=== PATIENT | female | born 1995 ===

== ENCOUNTER 2020-11-07 16:55 | Inpatient (IN) | payer BC ==
[2020-11-07] MEDS: Lactated Ringers 1,000 ML IV SCH (17:15)
[2020-11-07] MEDS ORDERED: Methylergonovine 0.2 MG/1 ML Amp IM PRN (17:23)
[2020-11-07] MEDS ORDERED: Lidocaine 1% 50 ML MDV INJECT PRN (17:23)
[2020-11-07] MEDS ORDERED: Misoprostol 200 MCG Tab PO PRN (17:23)
[2020-11-07] MEDS ORDERED: Tranexamic Acid 1,000 MG in Sodium Chloride 0.9% 100 ML IV PRN (17:23)
[2020-11-07] MEDS ORDERED: Butorphanol 1 MG/ML SDV IVPUSH PRN (17:23)
[2020-11-07] MEDS ORDERED: Sodium Chloride 0.9% 2.5 ML Syringe FLUSH PRN (17:23)
[2020-11-07] MEDS ORDERED: Sodium Chloride 0.9% 10 ML Syringe FLUSH PRN (17:23)
[2020-11-07] MEDS ORDERED: Carboprost Tromethamine 250 MCG/1 ML Amp IM PRN (17:23)
[2020-11-07] MEDS ORDERED: Nalbuphine 10 MG/1 ML Vial IVPUSH PRN (17:23)
[2020-11-07] MEDS ORDERED: Water For Irrigation,Sterile 1,000 ML Container IRR PRN (17:23)
[2020-11-07] MEDS ORDERED: Sodium Chloride 0.9% 10 ML SDV IV PRN (17:23)
[2020-11-07] MEDS ORDERED: Terbutaline 1 MG/ML SDV SUBCUT PRN (17:23)
[2020-11-07] MEDS ORDERED: Oxytocin/0.9 % Sodium Chloride 30 UNIT/500 ML BAG IV SCH ×2 (17:30)
[2020-11-07] MEDS ORDERED: Misoprostol 25 MCG (1/4 of 100 MCG) Tab PO ONE (18:00)
[2020-11-07] MEDS ORDERED: Misoprostol 25 MCG (1/4 of 100 MCG) Tab VAG PRN (18:00)
[2020-11-08] MEDS ORDERED: fentaNYL 100 MCG/2 ML SDV ONE (10:55)
[2020-11-08] MEDS ORDERED: Bupivicaine/fentaNYL/NS 250 ML ONE (10:56)
[2020-11-08] MEDS: Lactated Ringers 1,000 ML IV SCH ×3 (10:58→17:54)
[2020-11-08] MEDS ORDERED: ePHEDrine 50 MG/ML SDV ONE (11:05)
--- NOTE | 2020-11-08 11:31 | PCM.PREANE ---
Preanesthetic Assessment - Anesthesia/Transfusion/Family Hx Anesthesia History: Prior Anesthesia Reaction Type of Anesthesia Reaction: Excessive Nausea/Vomiting Family History of Anesthesia Reaction: No Transfusion History: No Prior Transfusion(s) Intubation History: Unknown - Review of Systems General: No Symptoms Pulmonary: No Symptoms Cardiovascular: No Symptoms Gastrointestinal: Abdominal Pain (labor pain) Neurological: No Symptoms Other: Reports: None - Physical Assessment Height: 5 ft 2 in Weight: 64.41 kg ASA Class: 2 Mental Status: Alert & Oriented x3 Airway Class: Mallampati = 1 Dentition: Reports: Normal Dentition Thyro-Mental Finger Breadths: 3 Mouth Opening Finger Breadths: 2 ROM/Head Extension: Full Lungs: Clear to Auscultation, Normal Respiratory Effort Cardiovascular: Regular Rate, Regular Rhythm - Lab Values: Laboratory Last Values WBC 12.29 K/uL (4.0-11.0) H 11/07/20 17:15 RBC 4.35 M/uL (4.30-5.90) 11/07/20 17:15 Hgb 12.2 g/dL (12.0-16.0) 11/07/20 17:15 Hct 38.0 % (36.0-46.0) 11/07/20 17:15 MCV 87.4 fL (80.0-98.0) 11/07/20 17:15 MCH 28.0 pg (27.0-32.0) 11/07/20 17:15 MCHC 32.1 g/dL (31.0-37.0) 11/07/20 17:15 RDW Std Deviation 42.8 fl (28.0-62.0) 11/07/20 17:15 RDW Coeff of Shaina 13 % (11.0-15.0) 11/07/20 17:15 Plt Count 256 K/uL (150-400) 11/07/20 17:15 MPV 11.40 fL (7.40-12.00) 11/07/20 17:15 Nucleated RBC % 0.0 /100WBC 11/07/20 17:15 Nucleated RBCs # 0 K/uL 11/07/20 17:15 SARS-CoV-2 RNA (MAGI) NEGATIVE (NEGATIVE) 11/07/20 17:15 Blood Type O POSITIVE 11/07/20 17:15 Antibody Screen NEGATIVE 11/07/20 17:15 - Allergies Allergies/Adverse Reactions: Allergies Allergy/AdvReac Type Severity Reaction Status Date / Time acetaminophen [From Vicodin] Allergy Vomiting Verified 11/07/20 17:22 hydrocodone [From Vicodin] Allergy Vomiting Verified 11/07/20 17:22 anesthesia Allergy Vomiting Uncoded 11/07/20 17:22 - Blood Blood Available: No - Anesthesia Plan Pre-Op Medication Ordered: None - Acknowledgements Anesthesia Type Planned: Epidural Pt an Appropriate Candidate for the Planned Anesthesia: Yes Alternatives and Risks of Anesthesia Discussed w Pt/Guardian: Yes Pt/Guardian Understands and Agrees with Anesthesia Plan: Yes PreAnesthesia Questionnaire Cardiovascular History: Reports: Other (See Below) Other Cardiovascular History: 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: Musculoskeletal History: Reports: Other (See Below) Other Musculoskeletal History: 2 bulging and ruptured lumbar discs - Past Surgical History HEENT Surgical History: Reports: Tonsillectomy - SUBSTANCE USE Tobacco Use Status *Q: Never Tobacco User Second Hand Smoke Exposure: No Recreational Drug Use History: No - CURRENT (IN HOUSE) MEDS Current Meds: Current Medications Butorphanol Tartrate (Stadol) 1 mg IVPUSH Q1H PRN PRN Reason: Pain Carboprost Tromethamine (Hemabate Ds) 250 mcg IM ASDIRECTED PRN PRN Reason: Post Hemorrhage Oxytocin/Sodium Chloride (Oxytocin 30 Unit/500 Ml-Ns) 30 unit in 500 mls @ 500 mls/hr IV TITRATE JCARLOS Tranexamic Acid 1,000 mg/ (Sodium Chloride) 110 mls @ 660 mls/hr IV ONETIME PRN PRN Reason: Bleeding Oxytocin/Sodium Chloride (Oxytocin 30 Unit/500 Ml-Ns) 30 unit in 500 mls @ 2 mls/hr IV TITRATE JCARLOS; Protocol Last Admin: 11/08/20 09:44 Dose: 2 munits/min, 2 mls/hr Documented by: Lactated Ringer's (Ringers, Lactated) 1,000 mls @ 150 mls/hr IV ASDIRECTED JCARLOS Last Admin: 11/08/20 10:58 Dose: 900 mls/hr Documented by: Lidocaine HCl (Xylocaine 1%) 50 ml INJECT ONETIME PRN PRN Reason: Laceration repair Methylergonovine Maleate (Methergine) 0.2 mg IM ASDIRECTED PRN PRN Reason: Post Hemorrhage Misoprostol (Cytotec) 200 mcg PO ONETIME PRN PRN Reason: Post Hemorrhage Misoprostol (Cytotec) 25 mcg VAG Q4H PRN PRN Reason: Cervical Ripening Last Admin: 11/07/20 22:42 Dose: 25 mcg Documented by: Nalbuphine HCl (Nubain) 10 mg IVPUSH Q1H PRN PRN Reason: Pain (severe 7-10) Sodium Chloride (Saline Flush) 10 ml FLUSH ASDIRECTED PRN PRN Reason: Keep Vein Open Sodium Chloride (Saline Flush) 2.5 ml FLUSH ASDIRECTED PRN PRN Reason: Keep Vein Open Sodium Chloride (Normal Saline) 10 ml IV ASDIRECTED PRN PRN Reason: IV Use Sterile Water (Sterile Water For Irrigation) 1,000 ml IRR ASDIRECTED PRN PRN Reason: delivery Terbutaline Sulfate (Brethine) 0.25 mg SUBCUT ASDIRECTED PRN PRN Reason: Tacysystole Discontinued Medications Ephedrine Sulfate (Ephedrine Sulfate) Confirm Administered Dose 50 mg .ROUTE .STK-MED ONE Stop: 11/08/20 11:06 Fentanyl (Sublimaze) Confirm Administered Dose 100 mcg .ROUTE .STK-MED ONE Stop: 11/08/20 10:56 Fentanyl/Bupivacaine HCl (Fentanyl/Bupivacaine/Ns 2 Mcg-0.125% 250 Ml) Confirm Administered Dose 250 mls @ as directed .ROUTE .STK-MED ONE Stop: 11/08/20 10:57 Misoprostol (Cytotec) 25 mcg PO ONETIME ONE Stop: 11/07/20 18:01 Last Admin: 11/07/20 18:08 Dose: 25 mcg Documented by:
[2020-11-08] MEDS ORDERED: Measles, Mumps & Rubella Vaccine 0.5 ML SDV SUBCUT ONE (18:58)
[2020-11-08] MEDS ORDERED: Bisacodyl 10 MG Supp RECTAL PRN (18:58)
[2020-11-08] MEDS ORDERED: Acetaminophen 500 MG Tab PO PRN ×2 (18:58)
[2020-11-08] MEDS ORDERED: Ibuprofen 400 MG Tab PO PRN (18:58)
[2020-11-08] MEDS ORDERED: Lanolin 100% Cream 7 GM Tube TOP PRN (18:58)
[2020-11-08] MEDS ORDERED: oxyCODONE 5 MG Tab PO PRN (18:58)
--- NOTE | 2020-11-08 19:03 | PCM.DEL ---
L & D Note - General Info Date of Service: 11/08/20 - Delivery Note Labor: Spontaneous, Induced by ARM, Induced by Oxytocin Delivery Outcome: Livebirth Presentation: Right Occiput Anterior (GABBY) Nuchal Cord: None Anesthesia Type: Epidural Anesthetic: Lidocaine (Xylocaine) 0.5% Plain Local Anesthetic Volume: Other (13cc) Amniotic Fluid Description: Clear Episiotomy Type: Right Mediolateral Laceration: 2nd Degree Suture type: Vicryl Suture size: 3-0 Placenta: Intact, Spontaneous Cord: 3 Vessels Estimated Blood Loss: 300 Resuscitation Needed: No [place]: Suctioned Provider: Ro Saini Second Stage Interventions: Reports: Pushing Effectively - General Info Date of Service: 11/08/20 - Patient Data Weight - Most Recent: 142 lb Lab Results Last 24 Hours: Laboratory Results - last 24 hr 11/07/20 Range/Units 17:15 Blood Type O POSITIVE Antibody Screen NEGATIVE Med Orders - Current: Current Medications Butorphanol Tartrate (Stadol) 1 mg IVPUSH Q1H PRN PRN Reason: Pain Carboprost Tromethamine (Hemabate Ds) 250 mcg IM ASDIRECTED PRN PRN Reason: Post Hemorrhage Oxytocin/Sodium Chloride (Oxytocin 30 Unit/500 Ml-Ns) 30 unit in 500 mls @ 500 mls/hr IV TITRATE JCARLOS Tranexamic Acid 1,000 mg/ (Sodium Chloride) 110 mls @ 660 mls/hr IV ONETIME PRN PRN Reason: Bleeding Oxytocin/Sodium Chloride (Oxytocin 30 Unit/500 Ml-Ns) 30 unit in 500 mls @ 2 mls/hr IV TITRATE JCARLOS; Protocol Last Titration: 11/08/20 12:38 Dose: 4 munits/min, 4 mls/hr Documented by: Lactated Ringer's (Ringers, Lactated) 1,000 mls @ 150 mls/hr IV ASDIRECTED JCARLOS Last Admin: 11/08/20 17:54 Dose: 150 mls/hr Documented by: Lidocaine HCl (Xylocaine 1%) 50 ml INJECT ONETIME PRN PRN Reason: Laceration repair Last Admin: 11/08/20 18:12 Dose: 50 ml Documented by: Methylergonovine Maleate (Methergine) 0.2 mg IM ASDIRECTED PRN PRN Reason: Post Hemorrhage Misoprostol (Cytotec) 200 mcg PO ONETIME PRN PRN Reason: Post Hemorrhage Misoprostol (Cytotec) 25 mcg VAG Q4H PRN PRN Reason: Cervical Ripening Last Admin: 11/07/20 22:42 Dose: 25 mcg Documented by: Nalbuphine HCl (Nubain) 10 mg IVPUSH Q1H PRN PRN Reason: Pain (severe 7-10) Sodium Chloride (Saline Flush) 10 ml FLUSH ASDIRECTED PRN PRN Reason: Keep Vein Open Sodium Chloride (Saline Flush) 2.5 ml FLUSH ASDIRECTED PRN PRN Reason: Keep Vein Open Sodium Chloride (Normal Saline) 10 ml IV ASDIRECTED PRN PRN Reason: IV Use Sterile Water (Sterile Water For Irrigation) 1,000 ml IRR ASDIRECTED PRN PRN Reason: delivery Terbutaline Sulfate (Brethine) 0.25 mg SUBCUT ASDIRECTED PRN PRN Reason: Tacysystole Discontinued Medications Ephedrine Sulfate (Ephedrine Sulfate) Confirm Administered Dose 50 mg .ROUTE .STK-MED ONE Stop: 11/08/20 11:06 Fentanyl (Sublimaze) Confirm Administered Dose 100 mcg .ROUTE .STK-MED ONE Stop: 11/08/20 10:56 Fentanyl/Bupivacaine HCl (Fentanyl/Bupivacaine/Ns 2 Mcg-0.125% 250 Ml) Confirm Administered Dose 250 mls @ as directed .ROUTE .STK-MED ONE Stop: 11/08/20 10:57 Misoprostol (Cytotec) 25 mcg PO ONETIME ONE Stop: 11/07/20 18:01 Last Admin: 11/07/20 18:08 Dose: 25 mcg Documented by: - Problem List Review Problem List Initiated/Reviewed/Updated: Yes - My Orders Last 24 Hours: My Active Orders 11/08/20 Breakfast Regular Diet [DIET] 11/08/20 18:58 Patient Status [ADT] Routine May Shower [RC] ASDIRECTED Up ad Cheryl [RC] ASDIRECTED Vital Signs [RC] PER UNIT ROUTINE Acetaminophen [Tylenol Extra Strength] 1,000 mg PO Q4H PRN Acetaminophen [Tylenol Extra Strength] 500 mg PO Q4H PRN Benzocaine/Menthol [Dermoplast Pain Relief 20%-0.5% [place]] 78 gm TOP ASDIRECTED PRN Docusate Sodium [Colace] 100 mg PO BID PRN Ibuprofen [Motrin] 400 mg PO Q4H PRN Ibuprofen [Motrin] 800 mg PO Q6H PRN Lanolin [Lansinoh HPA] See Dose Instructions TOP ASDIRECTED PRN Measles, Mumps & Rubella [M-M-R II Vaccine] 0.5 ml SUBCUT .ONCE ONE bisacodyL [Dulcolax] 10 mg RECTAL ONETIME PRN oxyCODONE 5 mg PO Q2H PRN witch Zena [Tucks] 1 pad TOP ASDIRECTED PRN Assess Lochia [WOMSER] Per Unit Routine Assess Uterine Involution [WOMSER] Per Unit Routine Breast Pump [WOMSER] Per Unit Routine Peripheral IV Discontinue [OM.PC] Routine 11/08/20 18:59 Cooling Warming Measures [RC] ASDIRECTED Ice Therapy [OM.PC] Per Unit Routine Perineal Care [OM.PC] Per Unit Routine 11/09/20 05:11 HEMOGLOBIN/HEMATOCRIT,HH [HEME] Timed - Assessment Assessment:: 25yo PPD0 s/p elective IOL and . - Plan Plan:: Routine care.
--- NOTE | 2020-11-08 20:28 | OR ---
SURGEON: Joce Newman MD DATE OF PROCEDURE: 11/08/2020 INDICATION FOR PROCEDURE: A 25-year-old, G1, P0, at 39 weeks and 3 days, presenting for induction of labor. The patient desired elective induction due to living remotely from the hospital. was complicated by a herniated disk and lower back pain. She had a consult with Anesthesia and was cleared for epidural. She received Cytotec for induction of labor and began peggy regularly after three doses and was 3cm dilated. She received an epidural with good pain control. She became hypotensive after the epidural with a sensation of tingling in her arms and face, and she was given ephederin, which she improved after. She had AROM with clear fluid and Pitocin was started. She continued to make cervical change and became fully dilated with desire to push. The tracing was mostly category 1 with intermittent variable decelerations with contractions. She is GBS negative. PREOPERATIVE DIAGNOSIS: Turner intrauterine at 39 weeks and 3 days. POSTOPERATIVE DIAGNOSIS: Turner intrauterine at 39 weeks and 3 days. PROCEDURE PERFORMED: Normal spontaneous vaginal delivery, repair of right mediolateral episiotomy. ANESTHESIOLOGIST: Dr. Desean Sullivan. ANESTHESIA: Epidural. FINDINGS: Viable female . score of 7 and 9. weight of 6 pounds 8 ounces. Placenta appears to have a marginal cord insertion. ESTIMATED BLOOD LOSS: 300 mL. DESCRIPTION OF PROCEDURE: The patient pushed with contractions for approximately 2 hours with good descent. The head was ; however, the patient was having difficulty delivering due to narrow vaginal introitus. Therefore, a right mediolateral episiotomy was performed, and the patient delivered with the next contraction. head in occiput anterior position, restituted ROT. Anterior shoulder delivered easily. No nuchal cord was noted. The posterior shoulder and the remaining body delivered easily. The baby was placed on maternal chest and evaluated by awaiting nursery staff. The baby was pink, crying, and moving all extremities after delivery. The umbilical cord was clamped and cut after 60 seconds and no longer pulsating. The cord gases were obtained. The placenta was removed with gentle traction on the umbilical cord. It was examined to be intact with 3- vessel cord. There appeared to be a marginal cord insertion. The perineum was examined, and she had a second-degree laceration at the site of the episiotomy. 13 mL of 1% lidocaine with epi was injected for local anesthesia. The laceration was repaired in usual fashion using 3-0 Vicryl. Fundal massage was performed. The uterus was firm and at the umbilicus and the bleeding was light. The patient tolerated the procedure well and was given care instructions. STEVIE VILLELA /[id number] CLIFF
[2020-11-08] MEDS: Benzocaine/Menthol 20%-0.5% Spray 78 GM Cannister TOP PRN (21:39)
[2020-11-08] MEDS: Witch Hazel Medicated Pads 40/Jar TOP PRN (21:39)
[2020-11-09] MEDS: Ibuprofen 800 MG Tab PO PRN ×2 (05:28→19:27)
--- NOTE | 2020-11-09 07:55 | PCM48HPAN ---
Post Anesthesia Note - EVALUATION WITHIN 48HRS OF ANESTHETIC Vital Signs in Normal Range: Yes Patient Participated in Evaluation: Yes Respiratory Function Stable: Yes Airway Patent: Yes Cardiovascular Function Stable: Yes Hydration Status Stable: Yes Pain Control Satisfactory: Yes Nausea and Vomiting Control Satisfactory: Yes Mental Status Recovered: Yes Vital Signs: Last Vital Signs Temp 36.6 C 11/09/20 05:20 Pulse 96 11/09/20 05:20 Resp 19 11/09/20 05:20 BP 110/65 11/09/20 05:20 Pulse Ox 96 11/09/20 05:20 - COMMENTS/OBSERVATIONS Free Text/Narrative:: The patient has mild back pain that is control. She has no other complaints, and no apparent neurodeficits. There were no apparent anesthetic complications at this time. Discharge from anesthesia service.
--- NOTE | 2020-11-09 08:31 | PCM.PNPP ---
- General Info Date of Service: 11/09/20 Subjective Update: Doing well. going well, using nipple shield to help with latch. - Review of Systems General: Reports: No Symptoms HEENT: Reports: No Symptoms Pulmonary: Reports: No Symptoms Cardiovascular: Reports: No Symptoms Gastrointestinal: Reports: No Symptoms Genitourinary: Reports: No Symptoms Musculoskeletal: Reports: No Symptoms Skin: Reports: No Symptoms Neurological: Reports: No Symptoms Psychiatric: Reports: No Symptoms - Patient Data Vital Signs - Most Recent: Last Vital Signs Temp 36.7 C 11/09/20 08:15 Pulse 77 11/09/20 08:15 Resp 15 11/09/20 08:15 BP 112/67 11/09/20 08:15 Pulse Ox 96 11/09/20 08:15 Weight - Most Recent: 64.41 kg Lab Results - Last 24 Hours: Laboratory Results - last 24 hr 11/08/20 11/09/20 Range/Units 18:01 05:40 Hgb 12.0 (12.0-16.0) g/dL Hct 37.9 (36.0-46.0) % Cord ABG pH 7.093 L (7.18-7.38) Cord ABG Base Excess -15 L (-10--2) Cord VBG pH 7.175 L (7.25-7.45) Cord VBG Base Excess -14 L (-10--2) Med Orders - Current: Current Medications Acetaminophen (Tylenol Extra Strength) 500 mg PO Q4H PRN PRN Reason: Pain Acetaminophen (Tylenol Extra Strength) 1,000 mg PO Q4H PRN PRN Reason: Pain Benzocaine/Menthol (Dermoplast Pain Relief 20%-0.5% [place]) 78 gm TOP ASDIRECTED PRN PRN Reason: Perineal Comfort Measure Last Admin: 11/08/20 21:39 Dose: 78 gm Documented by: Bisacodyl (Dulcolax) 10 mg RECTAL ONETIME PRN PRN Reason: Constipation Butorphanol Tartrate (Stadol) 1 mg IVPUSH Q1H PRN PRN Reason: Pain Carboprost Tromethamine (Hemabate Ds) 250 mcg IM ASDIRECTED PRN PRN Reason: Post Hemorrhage Docusate Sodium (Colace) 100 mg PO BID PRN PRN Reason: Constipation Emollient Ointment (Lansinoh Hpa) 0 gm TOP ASDIRECTED PRN PRN Reason: Sore Nipples Oxytocin/Sodium Chloride (Oxytocin 30 Unit/500 Ml-Ns) 30 unit in 500 mls @ 500 mls/hr IV TITRATE JCARLOS Tranexamic Acid 1,000 mg/ (Sodium Chloride) 110 mls @ 660 mls/hr IV ONETIME PRN PRN Reason: Bleeding Oxytocin/Sodium Chloride (Oxytocin 30 Unit/500 Ml-Ns) 30 unit in 500 mls @ 2 mls/hr IV TITRATE [facility]; Protocol Last Titration: 11/08/20 18:01 Dose: 999 munits/min, 999 mls/hr Documented by: Lactated Ringer's (Ringers, Lactated) 1,000 mls @ 150 mls/hr IV ASDIRECTED JCARLOS Last Admin: 11/08/20 17:54 Dose: 150 mls/hr Documented by: Ibuprofen (Motrin) 400 mg PO Q4H PRN PRN Reason: Pain Ibuprofen (Motrin) 800 mg PO Q6H PRN PRN Reason: Pain Last Admin: 11/09/20 05:28 Dose: 800 mg Documented by: Lidocaine HCl (Xylocaine 1%) 50 ml INJECT ONETIME PRN PRN Reason: Laceration repair Last Admin: 11/08/20 18:12 Dose: 50 ml Documented by: Methylergonovine Maleate (Methergine) 0.2 mg IM ASDIRECTED PRN PRN Reason: Post Hemorrhage Misoprostol (Cytotec) 200 mcg PO ONETIME PRN PRN Reason: Post Hemorrhage Misoprostol (Cytotec) 25 mcg VAG Q4H PRN PRN Reason: Cervical Ripening Last Admin: 11/07/20 22:42 Dose: 25 mcg Documented by: Nalbuphine HCl (Nubain) 10 mg IVPUSH Q1H PRN PRN Reason: Pain (severe 7-10) Oxycodone HCl (Oxycodone) 5 mg PO Q2H PRN PRN Reason: Pain Sodium Chloride (Saline Flush) 10 ml FLUSH ASDIRECTED PRN PRN Reason: Keep Vein Open Sodium Chloride (Saline Flush) 2.5 ml FLUSH ASDIRECTED PRN PRN Reason: Keep Vein Open Sodium Chloride (Normal Saline) 10 ml IV ASDIRECTED PRN PRN Reason: IV Use Sterile Water (Sterile Water For Irrigation) 1,000 ml IRR ASDIRECTED PRN PRN Reason: delivery Terbutaline Sulfate (Brethine) 0.25 mg SUBCUT ASDIRECTED PRN PRN Reason: Tacysystole Witpierce [place] (Tucks) 1 pad TOP ASDIRECTED PRN PRN Reason: comfort care Last Admin: 11/08/20 21:39 Dose: 1 pad Documented by: Discontinued Medications Ephedrine Sulfate (Ephedrine Sulfate) Confirm Administered Dose 50 mg .ROUTE .STK-MED ONE Stop: 11/08/20 11:06 Fentanyl (Sublimaze) Confirm Administered Dose 100 mcg .ROUTE .STK-MED ONE Stop: 11/08/20 10:56 Fentanyl/Bupivacaine HCl (Fentanyl/Bupivacaine/Ns 2 Mcg-0.125% 250 Ml) Confirm Administered Dose 250 mls @ as directed .ROUTE .STK-MED ONE Stop: 11/08/20 10:57 Measles/Mumps/Rubella Vaccine Live (M-M-R Ii Vaccine) 0.5 ml SUBCUT .ONCE ONE Stop: 11/08/20 18:59 Misoprostol (Cytotec) 25 mcg PO ONETIME ONE Stop: 11/07/20 18:01 Last Admin: 11/07/20 18:08 Dose: 25 mcg Documented by: - Interaction Infant Disposition, : [place] in Room with Family Infant Feeding: Breastfed ; Nursed Well Support Person: Significant Other - Recovery Exam Fundal Tone: Firm Fundal Level: At Umbilicus Fundal Placement: Midline Lochia Amount: Scant Lochia Color: Rubra/Red Other Perinuem Description: right mediolateral episiotomy Bladder Status: Voiding Urinary Elimination: Voided - Exam General: Alert, Oriented Neck: Supple Lungs: Normal Respiratory Effort GI/Abdominal Exam: Soft, Non-Tender Extremities: No Pedal Edema Skin: Warm, Dry, Intact Neurological: No New Focal Deficit Psy/Mental Status: Alert, Normal Affect, Normal Mood - Problem List & Annotations (1) Vaginal delivery SNOMED Code(s): 977295928 Code(s): O80 - ENCOUNTER FOR FULL-TERM UNCOMPLICATED DELIVERY Status: Acute Current Visit: Yes - Problem List Review Problem List Initiated/Reviewed/Updated: Yes - Assessment Assessment:: 25yo PPD1 s/p elective IOL and . - Plan Plan:: Plan to see nurse today. Desires discharge home at 24 hours PP if cleared by [facility]. Reviewed precautions/expectations. All questions answered.
[2020-11-09] MEDS: Docusate Sodium 100 MG Cap PO PRN ×2 (08:34→19:27)
[2020-11-09] MEDS: Benzocaine/Menthol 20%-0.5% Spray 78 GM Cannister TOP PRN (19:28)
[2020-11-09] MEDS: Witch Hazel Medicated Pads 40/Jar TOP PRN (19:28)
== END 2020-11-09 18:15 | disposition home or self-care (01) | DRG 560 ==
LOC: MW.OB 16:55 → OBSVTOIN 11-08 18:01 → MW.OB 11-08 22:44
PROVIDERS: ADMIT Obstetrics & Gynecology; ATTEND Obstetrics & Gynecology
PROC: 10E0XZZ Delivery of Products of Conception, External Approach (ICD-10-PCS; principal; 2020-11-08)
PROC: 3E0P7VZ Introduction of Hormone into Female Reproductive, Via Natural or Artificial Opening (ICD-10-PCS; 2020-11-08)
PROC: 10907ZC Drainage of Amniotic Fluid, Therapeutic from Products of Conception, Via Natural or Artificial Opening (ICD-10-PCS; 2020-11-08)
PROC: 3E0R3BZ Introduction of Anesthetic Agent into Spinal Canal, Percutaneous Approach (ICD-10-PCS; 2020-11-08)
PROC: 0W8NXZZ Division of Female Perineum, External Approach (ICD-10-PCS; 2020-11-08)
DX: O76 Abnormality in fetal heart rate and rhythm complicating labor and delivery (principal); Z3A.39 39 weeks gestation of pregnancy; Z37.0 Single live birth; Z20.828 Contact with and (suspected) exposure to other viral communicable diseases
CPT/HCPCS: 36415; 51702; 59025; 59409; 82803; 85014; 85018; 85027; 86592; 86850; 86900; 86901; A9270-GY; J2001; J2590; J7120; U0002